=== PATIENT | male | born 1950 | race Caucasian/White ===

== ENCOUNTER 2018-07-13 02:20 | Emergency (ER) | payer MEDICARE, OTHER, SELFPAY ==
[2018-07-13 02:24] VITALS: BP 160/88; PULSE 64; RESP 18; TEMP 36.3; O2SAT 99; BMI 36.3
--- NOTE | 2018-07-13 02:24 | ED_ITS ---
HPI - Abdominal Pain General Chief Complaint: Abdominal Pain Stated Complaint: abdominal pain for 3 hours nausea Time Seen by Provider: 07/13/18 02:24 Source: patient Mode of arrival: ambulatory Limitations: no limitations History of Present Illness HPI narrative: Patient is a 68-year-old male here for evaluation of bilateral lower abdominal cramping. Patient states the symptoms started several hours ago. He initially thought that it was food poisoning but never vomited. Has had some nausea. States that he thought he may need to have a bowel movement but was unsuccessful in trying. No prior abdominal surgeries. No fevers. No urinary symptoms. Related Data Previous Rx's Medication Instructions Recorded simethicone 125 mg PO BID-QID PRN #20 cap 07/13/18 Allergies Allergy/AdvReac Type Severity Reaction Status Date / Time No Known Drug Allergies Allergy Verified 07/13/18 02:30 Review of Systems Constitutional Denies fever(s) Cardiovascular Denies chest pain and Denies dyspnea Respiratory Denies dyspnea Gastrointestinal Gastrointestinal: Reports abdominal pain, Denies change in stool character, Reports cramping, Reports nausea and Denies vomiting Genitourinary Denies dysuria Musculoskeletal Denies myalgias and Denies arthralgias Integumentary/Breasts Denies rash Neurologic Denies behavioral changes Psychiatric Denies behavioral changes Hematologic/Lymphatic Denies easy bleeding and Denies easy bruising FOR[facility], LATER [facility] Medical History Patient denies medical problems (Acute) Surgical History No pertinent past surgical history (Acute) Social History Smoking Status: Never smoker Social History Smoking Status: Never smoker Exam Initial Vital Signs Initial Vital Signs: Vital Signs Temperature 97.4 F L 07/13/18 02:24 Pulse Rate 64 07/13/18 02:24 Respiratory Rate 18 07/13/18 02:24 Blood Pressure 160/88 H 07/13/18 02:24 Pulse Oximetry 99 07/13/18 02:24 Const General: cooperative, comfortable, well developed, well groomed and No acute distress Orientation: alert, awake and oriented x3 HENMT Head: normal to inspection and normocephalic Resp Effort & Inspection: normal respiratory effort Auscultation: clear to auscultation bilaterally Cardio Rate: regular rate Rhythm: regular rhythm GI Inspection: non-distended Palpation: soft, No firm and No tender Back/Spine/Pelvis Back: No CVA tenderness Skin Lesions: no lesions Rashes: no rashes Neuro General: alert, awake and oriented x3 Cognition: normal cognition Speech: speech normal Gait: normal gait Extrem General: normal to inspection, capillary refill normal and No edema Psych Appearance: grossly normal and well kempt Course Orders Ordered: ED Orders 07/13/18 02:35 Complete Blood Count AUTO DIFF Stat Comprehensive Metabolic Panel Stat Lipase Stat 07/13/18 02:39 CT abdomen pelvis w con Stat Discontinued Medications Sodium Chloride (Normal Saline 0.9%) 1,000 mls @ 1,000 mls/hr IV BOLUS ONE Stop: 07/13/18 03:38 Last Infusion: 07/13/18 03:08 Dose: 1,000 mls/hr Infusion: 07/13/18 02:54 Dose: 0 mls/hr Admin: 07/13/18 02:46 Dose: 1,000 mls/hr Simethicone (Mylicon) 80 mg PO NOW ONE Stop: 07/13/18 03:47 Vital Signs - 8 hr 07/13/18 02:24 07/13/18 03:44 Temperature 97.4 F L Pulse Rate 64 66 Respiratory Rate 18 16 Blood Pressure 160/88 H Blood Pressure [Left Arm] 149/81 H Pulse Oximetry 99 96 MDM - Abdominal Pain Lab Data Attestation: I reviewed the patient's lab results. Result diagrams: 07/13/18 02:35 07/13/18 02:35 Lab Results 07/13/18 07/13/18 Range/Units 02:35 02:35 WBC 10.1 (4.5-11.0) X10^3/uL RBC 4.71 (4.5-5.9) X10^6/uL Hgb 15.4 (13.5-17.5) g/dL Hct 45.2 (41-53) % MCV 96.0 (80-100) fL MCH 32.6 (26-34) PG MCHC 34.0 (30-36) % RDW 12.9 (11.6-14.8) % Plt Count 247 (150-400) X10^3/uL Neut % (Auto) 83.6 H (50-75) % Lymph % (Auto) 10.6 L (25-40) % Beckham % (Auto) 4.3 (3-14) % Eos % (Auto) 1.3 L (2-4) % Baso % (Auto) 0.2 (0-2) % Neut # (Auto) 8400 H (7674-8294) /uL Lymph # (Auto) 1100 (1909-6629) /uL Beckham # (Auto) 400 (0-900) /uL Eos # (Auto) 100 (0-450) /uL Baso # (Auto) 0 (0-100) /uL Sodium 138 (137-145) mmol/L Potassium 4.2 (3.4-5.1) mmol/L Chloride 101 (98-107) mmol/L Carbon Dioxide 29 (22-32) mmol/L BUN 16 (9-20) mg/dL Creatinine 1.10 (0.66-1.25) mg/dL Estimated GFR > 60.0 (>60) mL/min BUN/Creatinine Ratio 14.5 (6-22) Glucose 151 H (80-110) mg/dL Calcium 10.0 (8.4-10.2) mg/dL Total Bilirubin 0.5 (0.2-1.3) mg/dL AST 21 (17-59) IU/L ALT 20 L (21-72) IU/L Alkaline Phosphatase 83 (38-126) U/L Total Protein 7.3 (6.3-8.2) g/dL Albumin 4.4 (3.5-5.0) g/dL Globulin 2.9 (1.7-4.1) g/dL Albumin/Globulin Ratio 1.5 (1.0-2.8) Lipase 114 (23-300) U/L Imaging Data CT scan - abdomen: Radiologist's impression: Subtle increased attenuation of the mesenteric root fat without adenopathy. This is a nonspecific finding. But may be seen with mesenteric panniculitis. Study otherwise remarkable for chronic findings including prostate enlargement, left renal cyst, small hepatic cysts. MDM Narrative Medical decision making narrative: Patient does have a relatively benign abdominal exam. The CT scan shows no acute pathology. No signs of obstruction. Patient states that the pain that he had earlier this evening has improved but not completely gone. He has urinated here in the ER but has not had a bowel movement. No signs of infectious etiology. No signs of surgical pathology. Will hold on further workup for now. Discharge Plan Departure Patient Disposition: Home Clinical Impression: Abdominal pain Qualifiers: Abdominal location: lower abdomen, unspecified Qualified Code(s): R10.30 - Lower abdominal pain, unspecified Instructions: Acute Abdominal Pain Activity Restrictions/Additional Instructions: Your labs and the CT scan today were unremarkable. You can take the simethicone as directed this if this does not improve some of your symptoms. Contact your primary care doctor for follow-up. Return to the emergency department for any new symptoms, worsening pain, fevers, vomiting, or any other concerning symptoms Prescriptions: New simethicone 125 mg capsule 125 mg PO BID-QID PRN (Reason: abdominal discomfort) Qty: 20 RF: 0
--- NOTE | 2018-07-13 02:39 | DI.CT.S_ITS ---
PROCEDURE: CT ABDOMEN PELVIS W CON INDICATIONS: Generalized abdominal pain TECHNIQUE: After the administration of intravenous contrast, 5 mm thick sections acquired from the diaphragm to the symphysis. 5 mm coronal and sagittal reformats were acquired. For radiation dose reduction, the following was used: automated exposure control, adjustment of mA and/or kV according to patient size. COMPARISON: None. FINDINGS: Image quality: Excellent. ABDOMEN: Lung bases: Lung bases are clear. Heart size is normal. Relatively prominent coronary artery calcifications. Solid organs: Liver is normal in size and enhancement. Multiple small incidental liver cysts and possible hemangiomata. No suspicious liver lesions. Gallbladder is unremarkable. Biliary system is non dilated. Pancreas enhances normally. Spleen is normal in size and enhancement. No adrenal nodules. Kidneys demonstrate normal size and enhancement, without hydronephrosis. The left ureter at the UVJ becomes mildly dilated with increased density measuring 40 Hounsfield units. Cannot exclude a transitional cell carcinoma of the distal ureter. The more proximal left ureter is mildly prominent, and there is minimal left hydronephrosis. Peritoneum and bowel: Bowel loops demonstrate normal wall thickness and caliber. No free fluid or air. There is very subtle haziness of the mesenteric fat, a nonspecific finding, possibly representing prior inflammation. Sigmoid diverticulosis without evidence of diverticulitis. Nodes and vessels: No retroperitoneal or mesenteric adenopathy by size criteria. Aorta and inferior vena cava are normal in size. Miscellaneous: No ventral hernias. PELVIS: Genitourinary: Mild bladder wall thickening. Significant enlargement of the prostate. Miscellaneous: No inguinal hernias or adenopathy. Bones: No suspicious bony lesions. No vertebral body compression fractures. IMPRESSION: 1. The left ureter at the level of the UVJ is mildly dilated with increased density measuring 40 Hounsfield units. Question transitional cell carcinoma of the distal ureter at the UVJ. There is mild dilatation of the proximal ureter and minimal left hydronephrosis. 2. Marked enlargement of the prostate. Mild bladder wall thickening. 3. Coronary atherosclerosis. 4. Sigmoid diverticulosis. Comment: Comment: Findings were discussed with Marc Cisneros DO at the time of study dictation on 07.13.[address] IVP and possible urology consult is suggested. Comment: Primary interpretation provided by [facility]. Dictated by: Todd Brown M.D. on 07/13/2018 at 8:08 Approved by: Todd Brown M.D. on 07/13/2018 at 8:24
[2018-07-13] MEDS: SODIUM CHLORIDE 0.9% 1,000 ML 1000 ML IV (02:46)
[2018-07-13 02:51] LABS: Add Manual Diff / Slide Review NO; Basophils Absolute Auto 0 /uL (0-100); Basophils Percent Auto 0.2 % (0-2); Eosinophils Absolute Auto 100 /uL (0-450); Eosinophils Percent Auto 1.3 % (2-4); Hematocrit 45.2 % (41-53); Hemoglobin 15.4 g/dL (13.5-17.5); Lymphocytes Absolute Auto 1100 /uL (1100-4500); Lymphocytes Percent Auto 10.6 % (25-40); Mean Corpuscular Hemoglobin 32.6 PG (26-34); Monocytes Absolute Auto 400 /uL (0-900); Monocytes Percent Auto 4.3 % (3-14); Neutrophils Absolute Auto 8400 /uL (1500-7000); Neutrophils Percent Auto 83.6 % (50-75); Platelet Count 247 X10^3/uL (150-400); Red Blood Cell Count 4.71 X10^6/uL (4.5-5.9); Red Cell Distribution Width 12.9 % (11.6-14.8); White Blood Cell Count 10.1 X10^3/uL (4.5-11.0)
[2018-07-13 02:52] LABS: Alanine Aminotransferase 20 IU/L (21-72); Albumin 4.4 g/dL (3.5-5.0); Albumin Globulin Ratio 1.5 (1.0-2.8); Alkaline Phosphatase 83 U/L (38-126); Aspartate Aminotransferase 21 IU/L (17-59); BUN Creatinine Ratio 14.5 (6-22); Bilirubin Total 0.5 mg/dL (0.2-1.3); Blood Urea Nitrogen 16 mg/dL (9-20); Carbon Dioxide 29 mmol/L (22-32); Chloride 101 mmol/L (98-107); Estimated Glomerular Filt Rate > 60.0 mL/min (>60); Globulin 2.9 g/dL (1.7-4.1); Glucose 151 mg/dL (80-110); HEMOLYSIS < 15 (0-50); Lipase 114 U/L (23-300); Potassium 4.2 mmol/L (3.4-5.1); Sodium 138 mmol/L (137-145); Total Protein 7.3 g/dL (6.3-8.2)
[2018-07-13 03:44] VITALS: BP 149/81; PULSE 66; RESP 16; O2SAT 96
== END 2018-07-13 03:58 | disposition home or self-care (01) ==
PROVIDERS: Emergency Provider Emergency Medicine; PCP Family Medicine
DX: R10.30 Lower abdominal pain, unspecified (principal); R11.0 Nausea
CPT/HCPCS: 36591; 74177; 80053; 83690; 85025; 96360; 99283; 99284; Q9967

== ENCOUNTER → 2018-07-17 10:10 | Outpatient (CLI) | payer MEDICARE, OTHER, SELFPAY ==
--- NOTE | 2018-07-17 10:31 | DI.CT.S_ITS ---
PROCEDURE: CT ABDOMEN PELVIS WO/W CON INDICATIONS: Disorder of kidney and ureter, unspecified TECHNIQUE: Optional 5 mm thick noncontrast images acquired from the diaphragm to the symphysis pubis. After the administration of intravenous contrast, 5 mm thick images acquired from the diaphragm to the symphysis pubis after a 10-minute delay. 2 mm thick coronal and sagittal reformats were then performed of the kidneys and ureters. For radiation dose reduction, the following was used: automated exposure control, adjustment of mA and/or kV according to patient size. COMPARISON: None. FINDINGS: Image quality: Excellent. Lung bases: Lung bases are clear. Heart size is normal. Urinary system: Both kidneys are normal in size. There is no right-sided hydronephrosis or nephrolithiasis on pre-contrast images. No left-sided renal stone is seen. Dilated left ureter and mildly prominent left renal collecting system is again seen extending to the level of left UVJ. There is a 3.7 cm segment of moderate grade stenosis involving left proximal ureter just 5 cm distal to left UPJ. There is also a 2.3 cm segment of high-grade stenosis involving left distal ureter 1 cm proximal to the left UVJ. No definite intraluminal filling defect is seen. No perinephric fat stranding. There is normal bilateral renal enhancement. Renal calyces appear normal in morphology when filled with contrast. 4 cm left upper pole renal cyst is seen. Opacified portions of right ureter demonstrate normal caliber. Bladder wall thickness is normal. No calcified bladder stones. Enlarged prostate gland with mass effect on floor of urinary bladder is seen. Other solid organs: Liver is normal in size and enhancement. Multiple well-circumscribed hypodense areas are seen scattered in right and left hepatic lobes and measures up to 2 x 1.5 cm in size in the lateral segment of left hepatic lobe. No contrast enhancement is seen in these areas. Finding likely represent hepatic cysts. Gallbladder wall thickening is noted with mild brijesh-cholecystic inflammatory changes. No calcified gallstone is seen.. Biliary system is non dilated. Pancreas enhances normally. Spleen is normal in size and enhancement. No adrenal nodules. Peritoneum and bowel: Bowel loops demonstrate normal wall thickness and caliber. No free fluid or air. 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 Nodes and vessels: No retroperitoneal or mesenteric adenopathy by size criteria. Aorta and inferior vena cava are normal in size. Abdominal wall: No ventral hernias. Pelvis: No pathologic free pelvic fluid. No inguinal hernias or adenopathy. Bones: No suspicious bony lesions. No vertebral body compression fractures. IMPRESSION: 1. Distended left renal collecting system and left ureter with 2 segmental stenosis involving proximal and distal left ureter as described above. Finding could represent in ureteral stenosis secondary to prior injury/infection. Transitional cell carcinoma cannot be entirely excluded. No definite intraluminal filling defect is seen. No obstructing renal stone is calcified renal stone is seen. 2. Normal appearing right kidney and right ureter. Normal bladder wall thickness. Enlarged prostate gland with mass effect on floor of urinary bladder. 3. Questionable gallbladder wall thickening and pericholecystic inflammatory changes concerning for cholecystitis, suggest clinical correlation. 4. Well-circumscribed hypodense areas in right and left hepatic lobes, which may represent hepatic cysts. Dictated by: Artur Olivera M.D. on 07/17/2018 at 13:45 Approved by: Artur Olivera M.D. on 07/17/2018 at 14:04
== END ==
PROVIDERS: PCP Family Medicine; Visit Provider Family Medicine
DX: N28.9 Disorder of kidney and ureter, unspecified (principal); N40.0 Benign prostatic hyperplasia without lower urinary tract symptoms
CPT/HCPCS: 74178; Q9967